=== PATIENT | female | born 1945 | race Caucasian/White ===

== ENCOUNTER 2019-06-30 12:21 | Inpatient (IN) ==
[2019-06-30 14:27] LABS: BASO# 0.04 X1000 (0.0-0.2); BASO% 0.5 % (0.0-0.8); EOS# 0.08 X1000 (0.0-0.7); HEMATOCRIT 58.6 % (37.0-47.0); HEMOGLOBIN 19.2 g/dL (12.0-16.0); LYMPH# 1.73 X1000 (1.2-3.4); LYMPH% 22.5 % (20.5-51.1); MCH 33.4 PG (27-31); MCHC 32.8 g/dL (33-37); MCV 101.9 FL (81-99); MONO% 9.1 % (1.7-9.3); MPV 11.7 FL (7.4-10.4); NEUT# 5.15 X1000 (1.4-6.5); NEUT% 66.9 % (42.2-75.2); PLT 150 X1000 (130-400); RBC 5.75 XMIL (4.2-5.4); RDW 13.5 % (11.5-14.5)
--- NOTE | 2019-06-30 14:28 | EKG Report ---
Test Performed on : 06/30/2019 2:01:41 PM Test Reason : a fib Blood Pressure : / mmHG Vent. Rate : 112 BPM Atrial Rate : 277 BPM P-R Int : 000 ms QRS Dur : 090 ms QT Int : 366 ms P-R-T Axes : 000 075 -19 degrees QTc Int : 499 ms Atrial fibrillation. with rapid ventricular response. Nonspecific ST abnormality Abnormal QRS-T angle, consider primary T wave abnormality Abnormal ECG When compared with ECG of 03-JUL-2018 10:39, Atrial fibrillation. has replaced Sinus rhythm. Vent. rate has increased BY [address] no longer elevated in Inferior leads T wave inversion more evident in Inferior leads Unconfirmed Result
--- NOTE | 2019-06-30 14:31 | Diag Imaging Result Doc PS360 ---
EXAM: CHEST-2 VIEWS INDICATION: a fib/ weakness TECHNIQUE: 2 views COMPARISON: 04/12/2019 FINDINGS: There is a nodular density at the right lower lobe near the base and the smaller nodule density at the left lung base. These appear stable. There is no discrete pleural fluid collection or pneumothorax. Cardiac silhouette is borderline prominent but stable. Central vasculature is unremarkable. IMPRESSION: Stable nodular densities at the lower lung zones bilaterally. No definite acute chest pathology by plain radiograph. Electronically signed by Cristóbal Bailey 06/30/2019 2:29 PM
[2019-06-30 14:37] LABS: INR 1.26
[2019-06-30 14:38] LABS: PTT 45.4 Seconds (22.3-41.8)
[2019-06-30 15:26] LABS: AGAP 13; ALB/GLOB RATIO 1.2; ALBUMIN 4.5 g/dL (3.5-5.0); ALKALINE PHOSPHATASE 76 U/L (32-104); BUN 12 mg/dL (8-22); CALCIUM 10.7 mg/dL (8.8-10.2); CHLORIDE 96 mmol/L (98-107); CK PROFILE 27 U/L (24-173); COSMO 279; CREATININE 0.6 mg/dL (0.5-0.9); ESTIMATED GFR > 60; GLUCOSE 121 mg/dL (70-104); GOT 14 U/L (10-30); GPT 16 U/L (10-36); POTASSIUM 4.6 mmol/L (3.5-5.1); SODIUM 139 mmol/L (136-145); TCO2 30 mmol/L (25-35); TOTAL BILIRUBIN 0.77 mg/dL (0.20-1.00); TOTAL PROTEIN 8.4 g/dL (6.3-8.3)
--- NOTE | 2019-06-30 16:10 | PROVIDER DOCUMENTATION ---
HPI-Cardiac General - General Chief Complaint: Weakness Stated Complaint: AFIB---DR REFERRAL Time Seen by Provider: 06/30/19 15:51 Source: patient Allergies/Adverse Reactions: Patient Allergies Allergy/AdvReac Type Severity Reaction Status Date / Time No Known Allergies Allergy Verified 06/30/19 15:30 Home Medications: Home Medication List Medication Instructions Recorded Confirmed Last Taken Type Bisoprolol Fumarate/Hctz 1 each PO DAILY 08/04/12 08/04/12 06/30/19 07:00 History [Bisoprolol-Hctz 5-6.25 mg Tab] Furosemide [Lasix] 40 mg PO DAILY 08/04/12 08/04/12 06/30/19 07:00 History Levothyroxine Sodium [Levoxyl] 25 mcg PO DAILY 08/04/12 08/04/12 06/30/19 07:00 History Meloxicam [Mobic] 7.5 mg PO BID 08/04/12 08/04/12 06/30/19 07:00 History Tiotropium [place] Inhaler 1 puff INH RTDAILY 08/04/12 08/04/12 06/30/19 07:00 History [Spiriva] - History of Present Illness-Cardiac Nature of Presenting Problem: 74 yof presents with c/o a-fib, HTN, and generalized weakness. She reports she was changed to a new medication per Dr. Gupta and began taking on on friday since that time she reports elevated BP from baseline. She also reports occasional flutters. Denies CP. She has seen PCP today and was sent to the ER for evaluation of A-fib with RVR. She currently is NAD. Reports she has discussed "shocking her heart back in to NSR" with family day carer if the medication change did not improve symptoms. Patient denies CP, SOB, n/v/d. Location: denies: substernal, central, epigastric, shoulder, back, abdomen, other Quality of Pain: reports: none Severity in ED: moderate Onset/Duration: 5 days ago Timing: still present Context/Activities at Onset: reports: none Modifying Factors: improves with: nothing Palpitation Quality: fast/pounding heart beat History of arrythmia: reports: A-Fib Recent use of:: reports: no stimulants Nitro Today/Relief: reports: no nitro taken today Aspirin Treatment Today: reports: no aspirin today Prior Chest Pain/Cardiac Workup: reports: no prior chest pain, no prior cardiac workup, non-cardiac Associated Symptoms: reports: denies symptoms Similar Symptoms Previously?: No Recently Seen Here or By Another Healthcare Provider: No Review of Systems - Adult - REVIEW OF SYSTEMS - ADULT Constitutional: reports: no symptoms reported. denies: see HPI, chills, fever, fatique, night sweats, weight gain, weight loss, other Eyes: reports: no symptoms reported. denies: see HPI, discharge, dry eyes, decreased vision, blurred vision, double vision, eye pain, redness, other Ears, Nose, Mouth & Throat: reports: no symptoms reported. denies: see HPI, ear discharge, ear pain, hearing loss, tinnitus, epistaxis, sinus problem, nose pain, loose teeth, mouth/dental pain, mouth swelling, hoarseness, throat pain, throat swelling, other Cardiovascular: reports: see HPI, irregular heart rate. denies: no symptoms reported, chest pain, edema, heart murmur, orthopnea, palpitations, poor circulation, PND, syncope, other Respiratory: reports: no symptoms reported. denies: see HPI, chronic cough, cough, dyspnea on exertion, excessive sputum production, hemoptysis, pleurisy, shortness of breath, wheezing, other Gastrointestinal: reports: no symptoms reported. denies: see HPI, abdominal pain, hematemesis, constipation, diarrhea, difficulty swallowing, frequent heartburn, nausea, poor appetite, rectal bleeding, vomiting, other Genitourinary: reports: no symptoms reported. denies: see HPI, dysuria, discharge, frequency, flank pain, frequent UTI's, hematuria, hesitency, incontinence, urinary retention, urgency, other Musculoskeletal: reports: no symptoms reported. denies: see HPI, bone pain, back pain, frequent leg cramps, joint pain, joint swelling, muscle aches, muscle weakness, neck pain, other Integumentary: reports: no symptoms reported. denies: see HPI, hives, hair loss, itching, mole changes, nail changes, rash, skin sores/ulcer, skin thickening, other Neurological: reports: no symptoms reported. denies: see HPI, ataxia, dizziness/vertigo, headache/migraines, loss of balance, numbness, paresthesia, seizure, slurred speech, syncope, tremors, other Psychiatric: reports: no symptoms reported. denies: see HPI, anxiety, anti- depressant use, alcohol/drug dependence, depression, emotional problems, insomnia, panic attacks, suicidal thoughts, other Endocrine: reports: no symptoms reported. denies: see HPI, change in skin pigment, excessive sweating, goiter, cold intolerance, heat intolerance, increased hunger, increased thirst, polyuria, other Hematologic/Lymphatic: reports: no symptoms reported. denies: see HPI, blood clots, easy bruising, low blood count, lymphedema, prolonged bleeding, swollen lymph nodes, transfusions, other Allergic/Immunologic: reports: no symptoms reported. denies: see HPI, allergic reactions, allergic rhinitis, asthma, eczema, food allergy, frequent infections, hay fever, hives, positive PPD, urticaria, other Past History - Adult - PAST MEDICAL HISTORY-ADULT Review of Records: reports: Nursing Assessment Review, Social history reviewed & non-contributory. - IMMUNIZATION STATUS Childhood Immunizations: See Nurse Assessment Flu Vaccine: See Nurse Assessment - FAMILY HISTORY Family History: reviewed, not pertinent - SOCIAL HISTORY Smoking: cigarettes, less than 1 pack/day Substance Use: denies Physical Exam-General - PHYSICAL EXAM-ADULT Initial Vital Signs Reviewed: Yes - CONSTITUTIONAL General Appearance: appears well, alert, no apparent distress - EYES Eyes: PERRL/EOMI, pink conjunctivae - HEAD, EARS, NOSE, MOUTH & THROAT HENMT: normocephalic/atraumatic, moist mucous membranes, normal ENT inspection - NECK Neck: non-tender, full range of motion, supple - RESPIRATORY Respiratory: chest non-tender, lungs clear, normal breath sounds, no pleuratic chest pain, no respiratory distress, no accessory muscle use - CARDIOVASCULAR Cardiovascular: normal peripheral pulses, tachycardia, irregularly irregular - GASTROINTESTINAL (ABDOMEN) Abdominal Exam: normal bowel sounds, non tender, soft - LYMPHATIC Lymphatic: no adenopathy - MUSCULOSKELETAL Back Exam: normal inspection, no CVA tenderness, no vertebral tenderness Extremity: normal range of motion, non-tender, normal gait, normal inspection, no pedal edema, no calf tenderness Peripheral Pulses: radial (R): 2+, radial (L): 2+, dorsalis-pedis (R): 2+, dorsalis-pedis (L): 2+ - SKIN Integumentary: normal color, normal turgor, warm/dry - NEUROLOGIC Neurologic: grossly normal - PSYCHIATRIC Psych/Mental Status: normal mood/affect, oriented x 3 Progress - PLAN OF CARE/RESULTS Progress/Plan/Lab Results: Vital Signs - 8 hr 06/30/19 12:31 06/30/19 13:55 Temperature 97.6 F 97.4 F L Pulse Rate 100 H 106 H Respiratory Rate 18 16 Blood Pressure 137/72 145/96 O2 Sat by Pulse Oximetry 92 L 91 L Laboratory Results - last 24 hr 06/30/19 06/30/19 06/30/19 14:15 14:15 14:15 WBC 7.70 RBC 5.75 H Hgb 19.2 H Hct 58.6 H MCV 101.9 H MCH 33.4 H MCHC 32.8 L RDW Std Deviation 13.5 Plt Count 150 MPV 11.7 H Immature Gran % (Auto) 0.0 Neut % (Auto) 66.9 Lymph % (Auto) 22.5 [place] % (Auto) 9.1 Eos % (Auto) 1.0 Baso % (Auto) 0.5 Immature Gran # (Auto) 0.00 Neut # (Auto) 5.15 Lymph # (Auto) 1.73 [place] # (Auto) 0.70 H Eos # (Auto) 0.08 Baso # (Auto) 0.04 PT INR PTT (Actin FS) Sodium 139 Potassium 4.6 Chloride 96 L Carbon Dioxide 30 Anion Gap 13 BUN 12 Creatinine 0.6 Estimated GFR/1.73 m2 > 60 BUN/Creatinine Ratio 20 Glucose 121 H Calculated Osmolality 279 Calcium 10.7 H Total Bilirubin 0.77 AST 14 ALT 16 Alkaline Phosphatase 76 Creatine Kinase 27 Troponin T [id number]-[id number] Pept 1366 H Total Protein 8.4 H Albumin 4.5 Globulin 3.9 Albumin/Globulin Ratio 1.2 06/30/19 06/30/19 14:15 14:15 WBC RBC Hgb Hct MCV MCH MCHC RDW Std Deviation Plt Count MPV Immature Gran % (Auto) Neut % (Auto) Lymph % (Auto) [place] % (Auto) Eos % (Auto) Baso % (Auto) Immature Gran # (Auto) Neut # (Auto) Lymph # (Auto) [place] # (Auto) Eos # (Auto) Baso # (Auto) PT 16.0 INR 1.26 PTT (Actin FS) 45.4 H Sodium Potassium Chloride Carbon Dioxide Anion Gap BUN Creatinine Estimated GFR/1.73 m2 BUN/Creatinine Ratio Glucose Calculated Osmolality Calcium Total Bilirubin AST ALT Alkaline Phosphatase Creatine Kinase Troponin T < 0.010 [id number] Pept Total Protein Albumin Globulin Albumin/Globulin Ratio Orders Category Date Time Status Cardiac Monitoring DIRECTED Care 06/30/19 13:59 Active Saline Loc NOW Care 06/30/19 13:59 Active CHEST-2 VIEWS [RAD] Stat Exams 06/30/19 13:59 Completed CBC WITH ELECTRONIC DIFF [HEME] Stat Lab 06/30/19 14:15 Completed CK PROFILE [SP CHEM] Stat Lab 06/30/19 14:15 Completed COMPREHENSIVE METABOLIC PANEL [CHEM] Stat Lab 06/30/19 14:15 Completed PRO B-NATRIURETIC PEPTIDE Stat Lab 06/30/19 14:15 Completed PROTIME WITH INR [COAG] Stat Lab 06/30/19 14:15 Completed PTT [COAG] Stat Lab 06/30/19 14:15 Completed TROPONIN T Stat Lab 06/30/19 14:15 Completed UA NIMS W/REFLEX CULT [URINALYSIS] Stat Lab 06/30/19 16:11 Uncollected 0.9% Sodium Chloride Inj [Ns] 1,000 ml Med 06/30/19 16:27 Active IV 75 mls/hr Diltiazem 100 mg/Ns [Cardizem 100 mg/Ns] Med 06/30/19 16:30 Active 100 mg in 100 ml IV As Directed mls/hr Diltiazem [Cardizem] Med 06/30/19 16:17 Discontinued 10 mg IV NOW ONE CP/SOB/Palp >45 yrs of Age Stat Oth 06/30/19 13:59 Ordered EKG [EKG] Stat Ther 06/30/19 13:[address] aLwson who recommends cardizen drip and bolus. He will notify cardiology. Plan to admit Result Diagrams: 06/30/19 14:15 06/30/19 14:15 - EKG 1 Time of EKG reading by physician:: 14:01 EKG Read and Signed by:: Jerry Lawson EKG Interpretation (*Must complete 3 of following elements*): Abnormal Rate: 112 Rhythm: a-fib rvr [place]: normal QRS: other (abnormal qrst angle, consider primary t wave abnormality) ST Wave: non-specific ST changes Prior EKG Comparison: changes noted - CONSULTS/PCP/HOSPITALIST Notification #1 *Consult/PCP/Hospitalist*: Dr. Remy Time Discussed: 16:45 Reason/Comments: Dr. Lawson Spoke with Dr. Remy who is in agreement with POC Consult Disposition: Admit #2 Consult: LEROY Reyes Time Discussed: 17:07 Reason/Comments: admit Dr. Armijo Consult Disposition: Admit Departure - Departure Date of Disposition Decision: 06/30/19 Time of Disposition Decision: 17:08 DIAGNOSIS: Atrial fibrillation with RVR Disposition: ADMITTED INPATIENT 09 Certified Medical Emergency: Emergent Condition: Stable Referrals and Follow-Ups: Anisha Rodríguez MD [Primary Care Provider] - - Critical Care Note This patient required my direct & personal management of CC.: No Attestation - Physician/ JEREMY Attestation Patient care was provided by Advanced Practice Provider:: Yes Advanced Practice Provider:: Nilsa Holland Advanced Practice Provider documentation review:: The Mid-level provider documentation, treatment plan and medical decision making was reviewed by the physician who agrees with all treatment and medical decision making by the MLP. The physician spent face to face time with patient:: No Advanced Practice Provider documentation review:: Supervising physician onsite and consulted in the evaluation and care of this patient. The physician did not have a face to face encounter with the patient.
[2019-06-30] MEDS ORDERED: CARDIZEM IV ONE (16:17)
[2019-06-30] MEDS ORDERED: NS 1,000 ML IV ONE (16:27)
[2019-06-30] MEDS ORDERED: LOVENOX 1 MG/KG SUBQ SCH (19:00)
[2019-06-30] MEDS: CARDIZEM 100 MG/NS 100 MG/100 ML IVPB IV SCH (19:20)
[2019-06-30 19:35] LABS: URINE SOURCE CLEAN CATCH
[2019-06-30 19:39] LABS: BILIRUBIN URINE NEGATIVE (NEGATIVE); BLOOD URINE NEGATIVE (NEGATIVE); COLOR YELLOW; GLUCOSE URINE NEGATIVE (NEGATIVE); KETONE URINE NEGATIVE (NEGATIVE); LEUKOCYTES URINE SMALL (NEGATIVE); NITRITE URINE POSITIVE (NEGATIVE); PH URINE 6.5; PROTEIN URINE TRACE mg/dL (NEGATIVE); SP GRAVITY URINE 1.019; TURBIDITY URINE HAZY (CLEAR); UROBILINOGEN URINE NORMAL (NORMAL)
[2019-06-30 19:40] LABS: UR EPITHELIAL CELLS <10 /HPF (<10); URINE BACTERIA 4+ /HPF; URINE RBC <10 /HPF (<10)
--- NOTE | 2019-06-30 19:50 | HISTORY AND PHYSICAL ---
PRIMARY CARE PHYSICIAN: Anisha Rodríguez MD CHIEF COMPLAINT: Palpitations and fluttering from her heart that began today. HISTORY OF PRESENTING ILLNESS: This is a 74-year-old female, who presents to [facility] with complaints of palpitations and occasional flutters in her heart. States that recently she was changed some medications by Dr. Aparicio and began taking those on Friday. Since that time, she states she has had an elevated blood pressure, felt occasional flutters and some palpitations. She is our primary care physician today, who felt that she needed to be evaluated in the emergency room. When she arrived, she was found to be in atrial fibrillation with RVR that got as high as 130. Discussed with Dr. Remy. The patient was given 10 mg of Cardizem IV x1 with little change, so she was placed on a Cardizem drip and will be admitted to the PVC unit for further evaluation and treatment. PAST MEDICAL HISTORY: Atrial fibrillation, hypertension, and hypothyroidism. PAST SURGICAL HISTORY: Bilateral tubal ligation, tonsillectomy, neck surgery, and left carpal tunnel release. FAMILY HISTORY: Reviewed and noncontributory. SOCIAL HISTORY: She currently lives with family. Smokes a pack of cigarettes a day and denies any alcohol or illicit drug use. ALLERGIES: She has no known drug allergies. HOME MEDICATIONS: A current list will need to be obtained, reconciled, reviewed, and restarted as appropriate. We will place an order for Nursing to update and confirm home medications. DIAGNOSTIC STUDIES: Laboratory data showed a white blood cell count of 7.70, hemoglobin 19.2, hematocrit 58.6, platelets 150,000. PT 16, INR 1.26. Sodium 139, potassium 4.6, chloride 96, CO2 of 30, BUN of 12, creatinine 0.6, glucose 121. Cardiac enzymes were negative. ProBNP of 1366. EKG showed atrial fibrillation with RVR at 112. Chest x-ray showed stable nodular densities at the lower lung zones bilaterally, but no acute definite chest pathology by plain radiograph. REVIEW OF SYSTEMS: She denied any fever, chills, blurred vision, dizziness. She denied chest pain, but was positive for palpitations and fluttering. Denied any cough or shortness of breath. Denied any abdominal pain, constipation, diarrhea, or burning or hurting with urination. PHYSICAL EXAMINATION: VITAL SIGNS: On arrival, she had a temperature of 97.6 degrees, pulse was 100. When she arrived, her EKG showed atrial fibrillation with RVR at 113. And it did get as high as 130. Respirations are 18, blood pressure 137/72, saturating 92% on room air. GENERAL: This is a 74-year-old female, who is lying in the bed and answers questions appropriately. HEMNT: Normocephalic, atraumatic. Normal ENT inspection. Oropharynx and nares are clear. EYES: Pupils are equal, round, and reactive to light and accommodation. Extraocular movements are intact. NECK: Normal inspection, normal range of motion. LUNGS: Clear to auscultation bilaterally with equal lung expansion and chest wall movement. HEART: Irregular rate and rhythm, but no murmurs, rubs, or gallops. ABDOMEN: Soft, nontender, nondistended. Bowel sounds are present x4 quadrants. MUSCULOSKELETAL: Has 5/5 strength x4 extremities. NEUROLOGICAL: The cranial nerves 2-12 appear grossly intact. ASSESSMENT: 1. Atrial fibrillation with rapid ventricular response. 2. Hypertension. 3. Active Tobacco abuse . 4. Polycythemia PLAN: She will be admitted to the PVC unit. Placed on telemetry. O2 per protocol. Healthy heart diet. SCDs for DVT prophylaxis. We will consult Cardiology. Placed on a Cardizem drip per protocol. Place on normal saline at 75 mL an hour. Update and confirm home medications. It is noted that she had an echocardiogram done on 05/25/2019 that showed an ejection fraction of 45% with a systolic function that was mild to moderately decreased. Further orders after seen by attending and by risk assessment consultant. Dictated by LEROY Null for Mushtaq Armijo MD cc: LEROY Null MD Bhavna Gowda, MD I agree with most components of history,physical, assessment and plan. A separate addendum has been dictated. MTDD
[2019-06-30] MEDS ORDERED: TYLENOL PO PRN (20:28)
[2019-06-30] MEDS ORDERED: ZOFRAN IV PRN (20:28)
--- NOTE | 2019-06-30 21:02 | HISTORY AND PHYSICAL ---
ADDENDUM: I agree with most components of the history, physical, assessment and plan. In brief, Ms. Duncan is a 74-year-old lady with a past medical history of chronic atrial fibrillation, essential hypertension, obstructive lung disease with diffusion defect, congestive heart failure with reduced ejection fraction of 45%, and history of bilateral calcified lung nodules, who came in with a chief complaint of weakness which has been progressive over the last 2 weeks. The patient has been having these symptoms since more than a month and was seeing Cardiology as an outpatient, and it was thought that her atrial fibrillation could have been contributing to it. Her metoprolol was changed to probably bisoprolol, which did not help, and she decided to come to the hospital. She denies known history of any cancer, lung disease, exertional shortness of breath. At home she is taking Pradaxa 150 mg b.i.d. She does have a family history of mother having lung cancer next. She was found to be in atrial fibrillation with rapid ventricular rate with a heart rate of 140, so the hospitalist team was consulted for further management. PHYSICAL EXAMINATION: VITAL SIGNS: Temperature of 97.4 degrees, pulse 106, respiratory rate 16, blood pressure 140/96, saturating 91% on room air. Physical Examination Oral cavity is moist. LUNGS: Air entry bilaterally equal in suprascapular region. Mildly decreased air entry in bilateral infrascapular regions with some inspiratory crackles. CARDIOVASCULAR: S1, S2 normal. Irregularly irregular, tachycardic. No murmur, rub, or gallop. ABDOMEN: Soft, nontender. No lower extremity edema except superficial venous congestion. She is alert and oriented x3. LABORATORY DATA: Remarkable for polycythemia, macrocytosis, normal kidney function, hypercalcemia, elevated proBNP. Microbiology unremarkable. Chest x-ray did not have a pneumothorax or pneumonia. She does have calcified nodules, bilateral lung rodriguez. Electrocardiogram suggestive of atrial fibrillation with rapid ventricular rate. ASSESSMENT AND PLAN: 1. Atrial fibrillation with rapid ventricular rate. I will start her on an intravenous diltiazem drip. I will keep her on enoxaparin for primary cerebrovascular accident prophylaxis. I will consult Cardiology for further recommendations. 2. Polycythemia. On previous lung function test, she was detected to have an obstructive pattern with diffusion defect. The etiology was unclear. She had a CT scan which had bilateral calcified lung nodules in 2018. I will get an erythropoietin level as well as JAK2 to rule out any polycythemia vera. She has a positive family history of mother having cancer. 3. Progressive weakness. This could be a combination of chronic atrial fibrillation versus other etiologies. I will keep her on intravenous fluids and follow up with CBC and BMP tomorrow. DISPOSITION: I will monitor patient in PVC unit. Plan of care discussed with her and her family at bedside. All their questions have been satisfactorily answered. cc: Mushtaq Armijo MD
[2019-06-30] MEDS: LOVENOX SUBQ SCH (21:17)
[2019-06-30 22:29] LABS: IRON SATURATION 20 %; TIBC 333 ug/dL; TOTAL IRON 66 ug/dL (49-151); UNBOUND IRON 267 ug/dL (112-346)
[2019-06-30 23:19] LABS: FERRITIN 1316 ng/mL (13-150)
[2019-07-01] MEDS: CARDIZEM 100 MG/NS 100 MG/100 ML IVPB IV SCH (05:37)
[2019-07-01 06:23] LABS: BASO# 0.03 X1000 (0.0-0.2); BASO% 0.5 % (0.0-0.8); EOS% 1.6 % (0.0-10.0); HEMATOCRIT 49.9 % (37.0-47.0); HEMOGLOBIN 16.3 g/dL (12.0-16.0); LYMPH# 1.73 X1000 (1.2-3.4); LYMPH% 27.9 % (20.5-51.1); MCH 33.9 PG (27-31); MCHC 32.7 g/dL (33-37); MCV 103.7 FL (81-99); MONO# 0.81 X1000 (0.11-0.59); MONO% 13.1 % (1.7-9.3); MPV 12.2 FL (7.4-10.4); NEUT# 3.52 X1000 (1.4-6.5); NEUT% 56.9 % (42.2-75.2); PLT 125 X1000 (130-400); RBC 4.81 XMIL (4.2-5.4); RDW 13.6 % (11.5-14.5); WBC 6.19 X1000 (4.8-10.8)
[2019-07-01 07:24] LABS: AGAP 9; BUN 15 mg/dL (8-22); CALCIUM 9.8 mg/dL (8.8-10.2); CHLORIDE 101 mmol/L (98-107); COSMO 286; CREATININE 0.7 mg/dL (0.5-0.9); ESTIMATED GFR > 60; GLUCOSE 127 mg/dL (70-104); POTASSIUM 3.7 mmol/L (3.5-5.1); SODIUM 142 mmol/L (136-145); TCO2 32 mmol/L (25-35)
[2019-07-01] MEDS: LOVENOX SUBQ SCH ×2 (07:27→20:56)
[2019-07-01] MEDS ORDERED: SYNTHROID PO SCH (09:00)
--- NOTE | 2019-07-01 09:01 | EKG Report ---
Test Performed on : 07/01/2019 08:51:06 AM Test Reason : Follow up heart rhythm Blood Pressure : / mmHG Vent. Rate : 099 BPM Atrial Rate : 277 BPM P-R Int : 000 ms QRS Dur : 096 ms QT Int : 370 ms P-R-T Axes : 000 062 -08 degrees QTc Int : 474 ms Atrial fibrillation. Nonspecific ST abnormality Abnormal QRS-T angle, consider primary T wave abnormality Abnormal ECG When compared with ECG of 30-JUN-2019 14:01, (Unconfirmed) Nonspecific T wave abnormality no longer evident in Anterior leads Confirmed by Meliton Cherry MD ([id number]) on 07/01/2019 5:33:10 PM
[2019-07-01] MEDS ORDERED: NS NEB INH SCH (09:45)
[2019-07-01] MEDS: MULTAQ PO SCH ×2 (10:12→20:55)
[2019-07-01] MEDS: LOPRESSOR PO SCH ×3 (10:12→20:56)
[2019-07-01] MEDS: CARDIZEM PO SCH ×3 (10:12→21:42)
--- NOTE | 2019-07-01 11:13 | CARDIOLOGY CONSULTATION ---
DATE: 07/01/2019 CONSULTATION REQUESTED BY: Hospitalist service. REASON FOR CONSULTATION: Dyspnea, atrial fibrillation. HISTORY: Mrs. Duncan is a 74-year-old female that I normally followed in my office. I had seen her recently about 10 days ago and she had been complaining of chest tightness and was found to be in persistent atrial fibrillation. We had made adjustments, put her on sotalol, discontinue metoprolol. However, she has noted that her blood pressure has been quite erratic. In addition, her breathing has become more later labored and she has been coughing and wheezing some. Yesterday she went to her primary doctor's office and from there she was referred to the emergency room. In the ER, she was found in atrial fibrillation with a heart rate in the order of 100 beats per minute. They put on IV Cardizem. They did a number of blood test. A proBNP level was checked it was 1366 mcg/mL. Troponin was negative. Of note, her ferritin is very high at 1316 ng/mL. BUN creatinine are normal. Her hemoglobin for some reason was high at 19.2 on the 1st blood test and subsequently 16.3. A chest x-ray was done and shows stable nodular densities at the lower lung zones. Her EKG of course showed atrial fibrillation with rapid rate. No ischemic changes. The patient this morning is really feeling about the same. She is obviously coughing and wheezing slightly. PAST MEDICAL HISTORY: Her past history positive for previous documented paroxysmal atrial fibrillation. She had been taking the Dabigatran 150 mg twice a day. She has coronary atherosclerosis noted on a prior CT scan of the chest. She has had a heart catheterization in 2009 that showed no evidence of obstructive coronary heart disease. She has hypertension. She has hyperlipidemia. She has diabetes mellitus type 2. Hypothyroidism. SURGICAL HISTORY: Has included tonsillectomy, carpal tunnel release, tubal ligation, and neck surgery. SOCIAL HISTORY: She been a smoker. She lives with her disabled son. ALLERGIES: The patient has no drug allergies. HOME MEDICINES: Include sotalol, Dabigatran, diltiazem CD 120 once daily, Lasix 40 daily, hydrochlorothiazide 12-1/2 daily, Levoxyl 25 mcg daily, meloxicam 7.5 once a day, metformin 500 twice a day, pravastatin 40 at bedtime, and Spiriva. REVIEW OF SYSTEMS: She has been feeling more short of breath lately, more cough, little physical activity. No edema. PHYSICAL EXAMINATION: Right now blood pressure is 157/96, temperature 98.2 degrees, pulse 85, respirations 23. The patient is awake, alert, in no distress.HEENT: Unremarkable. Chest: Rhonchi with prolonged expiratory phase. Heart: Sounds irregularly irregular. Abdomen: Nontender. Extremities: Showed no obvious edema. Neurological: Nonfocal. Moves 4 extremities. LABORATORY DATA: Additional blood work sodium, potassium, BUN, creatinine all normal. IMPRESSION: 1. Patient who has persistent atrial fibrillation, symptomatic. 2. Chronic obstructive pulmonary disease. 3. Tobacco user. 4. Hypertension. 5. Diabetes mellitus type 2. 6. Question of polycythemia. 7. Hypothyroidism. 8. Coronary atherosclerosis. 9. CHF diastolic, chronic with some acute component. RECOMMENDATION: At this time, we will proceed with direct current cardioversion. I am going to change her medications. She may not be able to tolerate sotalol at high doses because of her COPD, so I am going to go ahead and probably put her on diltiazem long-acting higher doses and which she was taking plus low-dose metoprolol and we will try to use Dronedarone or Multaq to try to maintain her in sinus rhythm. Cardioversion will be performed in the morning. She does not need a SONYA because she has already been taking Plavix for a long time. The patient really needs to quit smoking and we will follow her hospital course. The patient is being followed regularly by Dr. Noé Bowman from pulmonary because of the finding of pulmonary nodules. Thank you for asking us to participate in her evaluation. cc: Pavan Aparicio MD [facility]
[2019-07-01] MEDS: XOPENEX NEB INH SCH ×4 (11:37→22:55)
[2019-07-01] MEDS: SPIRIVA INH SCH (11:41)
--- NOTE | 2019-07-01 12:04 | PROGRESS NOTE ---
DATE: 07/01/2019 INTERVAL HISTORY: She was started on intravenous diltiazem drip, which controlled her heart rate in the morning time. She denies any complaints. She denies chest pain, shortness of breath, nausea, vomiting, abdominal pain. I discussed with her about improvement in her hemoglobin. Continue diltiazem drip and awaiting Cardiology recommendations. Her family is at bedside. CURRENT VITALS: Temperature 98.2 degrees, pulse 85, respiratory rate 23, blood pressure 157/96. She is saturating 95% on 2 L nasal cannula. PHYSICAL EXAM: General: She is not in any acute distress. Mouth: Oral cavity is moist. Lungs: She does have decreased lung sounds in bilateral lung rodriguez, especially in infrascapular region. No wheeze or rhonchi. Cardiovascular: S1, S2 normal. Irregularly irregular. No murmur, rub, or gallop. Abdomen: Soft, nontender. Skin: No facial plethora. Extremities: No lower extremity edema. Neurologic: She is alert and oriented x3. LABS: Suggestive of hemoglobin of 16.3 with macrocytosis of 103. Her platelet is 125,000. Her electrolytes are within acceptable range. Urine culture was drawn, though, she did not have any symptoms. ASSESSMENT AND PLAN: 1. Atrial fibrillation with rapid ventricular response. Continue intravenous diltiazem drip. On review of medication, she was also started on oral diltiazem recently it looks like. I will keep her on enoxaparin for primary cerebrovascular accident prophylaxis and we will await further cardiology recommendation to see if she would need any cardioversion which where the original plans outpatient. 2. Polycythemia. This could be related to chronic hypoxia related to diffusion defect as demonstrated on pulmonary function test in the past. She also had a saturation of 90% on arrival. It also improved after intravenous fluid resuscitation. So, hemoconcentration is also a possibility. She had calcified lung nodules in 2018 and JAK2 and erythropoietin levels are in lab to rule out any polycythemia vera. She has a family history of lung cancer in mother. 3. Rapidly Progressive weakness. This could be related to chronic atrial fibrillation versus polycythemia versus other etiologies. I will continue her inside the hospital. In future, we will have physical therapy evaluate her. DISPOSITION: Continue to monitor the patient in the PVC unit. Plan of care discussed with her and family. Their questions have been answered. cc: Mushtaq Armijo MD [facility]
[2019-07-01 15:42] LABS: LYMPHS 18 % (21-51); MONO 7 % (1-9); SEGS 75 % (42-75)
[2019-07-01] MEDS: PRAVACHOL PO SCH (20:56)
[2019-07-02] MEDS: XOPENEX NEB INH SCH ×6 (03:37→23:42)
[2019-07-02] MEDS: LOPRESSOR PO SCH ×3 (04:36→17:40)
[2019-07-02] MEDS: CARDIZEM PO SCH ×2 (04:36→11:49)
[2019-07-02] MEDS: MULTAQ PO SCH ×3 (06:22→20:40)
[2019-07-02] MEDS: LOVENOX SUBQ SCH ×3 (06:22→20:41)
[2019-07-02] MEDS: SYNTHROID PO SCH (06:22)
[2019-07-02 06:23] LABS: BASO# 0.03 X1000 (0.0-0.2); BASO% 0.5 % (0.0-0.8); EOS# 0.09 X1000 (0.0-0.7); EOS% 1.4 % (0.0-10.0); HEMATOCRIT 44.6 % (37.0-47.0); HEMOGLOBIN 14.9 g/dL (12.0-16.0); LYMPH# 1.61 X1000 (1.2-3.4); LYMPH% 25.3 % (20.5-51.1); MCH 34.6 PG (27-31); MCHC 33.4 g/dL (33-37); MCV 103.5 FL (81-99); MONO# 0.82 X1000 (0.11-0.59); MONO% 12.9 % (1.7-9.3); MPV 11.7 FL (7.4-10.4); NEUT# 3.81 X1000 (1.4-6.5); NEUT% 59.9 % (42.2-75.2); PLT 122 X1000 (130-400); RBC 4.31 XMIL (4.2-5.4); RDW 13.4 % (11.5-14.5); WBC 6.36 X1000 (4.8-10.8)
--- NOTE | 2019-07-02 06:41 | EKG Report ---
Test Performed on : 07/02/2019 06:32:33 AM Test Reason : a-fib Blood Pressure : / mmHG Vent. Rate : 071 BPM Atrial Rate : 375 BPM P-R Int : 000 ms QRS Dur : 096 ms QT Int : 426 ms P-R-T Axes : 260 082 061 degrees QTc Int : 462 ms Atrial flutter. with variable AV block. Abnormal ECG When compared with ECG of 01-JUL-2019 08:51, Atrial flutter. has replaced Atrial fibrillation. Confirmed by Jo Ann ROCHA, Meliton Zepeda ([id number]) on 07/02/2019 8:48:58 AM
[2019-07-02 07:09] LABS: AGAP 4; BUN 11 mg/dL (8-22); CALCIUM 9.7 mg/dL (8.8-10.2); CHLORIDE 102 mmol/L (98-107); COSMO 280; CREATININE 0.7 mg/dL (0.5-0.9); ESTIMATED GFR > 60; GLUCOSE 115 mg/dL (70-104); POTASSIUM 4.3 mmol/L (3.5-5.1); SODIUM 140 mmol/L (136-145); TCO2 34 mmol/L (25-35)
[2019-07-02] MEDS: SPIRIVA INH SCH (07:17)
[2019-07-02 07:37] LABS: BANDS 2 % (0-1); LYMPHS 20 % (21-51); MONO 4 % (1-9); SEGS 56 % (42-75)
[2019-07-02] MEDS ORDERED: NS 1,000 ML ONE (09:40)
[2019-07-02] MEDS ORDERED: ANESTHESIA PB SET 88 IN 5742 ONE (09:40)
--- NOTE | 2019-07-02 09:47 | PROGRESS NOTE ---
DATE: 07/02/2019 INTERVAL HISTORY: She was started on metoprolol, short-acting diltiazem, dronedarone. However, it did not help her rhythm. Though her heart rate was well controlled, she still remained in atrial fibrillation and the plan for her is to go for cardioversion. I discussed with her that there the erythropoietin and JAK2 blood tests are still in the lab. However, her hemoglobin has become normal. It is possible that her high hemoglobin could be related to COPD as well as volume depletion, which has now become normal. She denies any chest pain or shortness of breath. VITALS: Temperature of 97.9 degrees, pulse 65, respiratory 20, blood pressure 115/79. She is saturating 95% on 3 L nasal cannula. PHYSICAL EXAMINATION: General: Does not appear in any acute distress. HEENT: Oral cavity is moist. Respiratory: She has decreased air sounds bilaterally. No wheeze, rhonchi or crackles. Cardiac: S1, S2 normal. Irregularly irregular. No murmur or gallop. Abdomen: Soft, nontender. Extremity: No edema. Neuro: She is alert and oriented x3. I counseled her about smoking cessation. LABS: Hemoglobin of 14.9, which improved from 19.2 on presentation. She does have 122 of platelet. Her electrolytes are otherwise normal. MICROBIOLOGY: Urine culture is growing gram-negative evelin. However, she is denying any symptoms of it. IMAGING: No new imaging. ASSESSMENT AND PLAN: 1. Atrial fibrillation with rapid ventricular response. Continue current metoprolol, diltiazem and dronedarone and await cardioversion. Continue enoxaparin for primary cerebrovascular accident prophylaxis. She is at home taking Pradaxa. 2. Polycythemia. Could be secondary to her chronic hypoxia related to chronic obstructive pulmonary disease. Could be related to volume depletion as well. At home she was listed to be taking furosemide as well as hydrochlorothiazide. Now appears to be better. I discussed with her about following up with JAK2 and erythropoietin levels outpatient if they are not back by the time she gets discharged in future. 3. Active tobacco abuse with likely smoking-related obstructive lung disease based on pulmonary function test. She sees a baseball hand sewer as outpatient and I discussed with her about continuing albuterol inhaler and having outpatient pulmonology followup. 4. Rapidly progressive weakness, could be related to her atrial fibrillation. I will have physical therapy come by and evaluate her starting tomorrow. DISPOSITION: Plan of care was discussed with the patient and multiple family members. I will continue to monitor in PVC. Their questions have been answered. cc: Mushtaq Armijo MD
[2019-07-02] MEDS ORDERED: DIPRIVAN 1% ONE (09:54)
--- NOTE | 2019-07-02 11:53 | CARDIAC CATH REPORT ---
DATE: 07/02/2019 PROCEDURE: Direct current cardioversion. INDICATION: Patient with persistent atrial fibrillation, symptomatic, unable to be managed with medications. DESCRIPTION: The patient was consented on 07/01/2019. She was brought to the [facility] this morning, 07/02/2019, in a fasting state. The pads were positioned in an anterior posterior location and she received anesthesia under the services of the anesthesiologist on-call. IV propofol was used. Once the patient was adequately sedated, the patient received a single synchronized countershock to the chest cage consisting of 75 foster per second. She converted from atrial fibrillation into sinus rhythm. She woke up from the effects of anesthesia. SUMMARY: In summary, this was a successful cardioversion from atrial fibrillation into sinus rhythm. RECOMMENDATION: At this point in time, we are going to put her a different regimen of beta duncan, diltiazem, and dronedarone. We will follow her at the office. We will probably supply her with a 30 day loop recorder monitor to complement the current monitor that she was carrying. cc: Pavan Aparicio MD [facility]
--- NOTE | 2019-07-02 12:42 | EKG Report ---
Test Performed on : 07/02/2019 11:57:43 AM Test Reason : S/P Cardioversion Blood Pressure : / mmHG Vent. Rate : 070 BPM Atrial Rate : 070 BPM P-R Int : 190 ms QRS Dur : 098 ms QT Int : 424 ms P-R-T Axes : 060 054 021 degrees QTc Int : 457 ms Sinus rhythm. with premature atrial complexes. Possible Left atrial enlargement Nonspecific ST abnormality Abnormal ECG When compared with ECG of 02-JUL-2019 06:32, Sinus rhythm. has replaced Atrial flutter. Confirmed by Jo Ann ROCHA, Meliton Zepeda ([id number]) on 07/02/2019 3:08:22 PM
[2019-07-02] MEDS: PRAVACHOL PO SCH (20:40)
[2019-07-02] MEDS: CARDIZEM CD PO SCH (20:40)
[2019-07-03] MEDS: XOPENEX NEB INH SCH ×4 (03:14→15:28)
[2019-07-03] MEDS: SYNTHROID PO SCH ×2 (05:31→06:07)
[2019-07-03] MEDS: SPIRIVA INH SCH (07:33)
[2019-07-03] MEDS: MULTAQ PO SCH (08:21)
[2019-07-03] MEDS: CARDIZEM CD PO SCH (08:22)
[2019-07-03] MEDS ORDERED: TOPROL XL PO SCH (09:00)
[2019-07-03] MEDS ORDERED: PRADAXA PO SCH (09:00)
--- NOTE | 2019-07-03 11:10 | PROGRESS NOTE ---
DATE: 07/03/2019 INTERVAL HISTORY: His Perla underwent successful cardioversion from atrial fibrillation to sinus rhythm. She was kept on diltiazem, metoprolol and dronedarone which she has been tolerating well so far. SUBJECTIVE: Morning time she is feeling better. Denies chest pain, shortness of breath. I had a discussion about her elevated erythropoietin being secondary to probably her COPD. We discussed about asymptomatic bacteriuria, possibly current atrial fibrillation based on manager cardiac cath at bedside as well as outpatient pulmonology follow-up and home need of oxygen. VITAL SIGNS: Temperature 96.6 degrees, pulse 77, respiratory 18, blood pressure 139/95, saturating 94% on 3 L nasal cannula. PHYSICAL EXAMINATION: General: Not in acute distress. HEENT: Oral cavity is moist. Lungs: Air entry bilaterally equal in suprascapular region. Decreased air entry bilateral infrascapular region. Cardiovascular: S1, S2 normal. Irregularly irregular. No murmur, rub, or gallop. Abdomen: Soft, nontender. Extremities: No lower extremity edema. Neurologic: She is alert and oriented x3. LABORATORY DATA: No CBC or BMP today. ASSESSMENT AND PLAN: 1. Atrial fibrillation with rapid ventricular response status post direct current cardioversion on July 02. Continue home metoprolol, diltiazem and dronedarone. Followup stat EKG. On bedside monitor, it appears that she has converted back into atrial fibrillation. I will continue home Pradaxa and await further Cardiology recommendations. 2. Polycythemia with elevated erythropoietin. This could be secondary polycythemia due to her chronic obstructive pulmonary disease. I advised her to have a followup of JAK2 in any case outpatient. Her polycythemia has currently now resolved. 3. Hypoxic respiratory failure with suspected chronic obstructive pulmonary disease based on pulmonary function test. I will await home oxygen evaluation. Continue her home Spiriva and levalbuterol inhalation. She should have outpatient Pulmonology followup. She was counseled about smoking cessation because of her active tobacco abuse. 4. Rapidly progressive weakness, thought to be related to atrial fibrillation. Currently she is feeling better. 5. Disposition. Awaiting EKG, further Cardiology recommendations. Based on that, I will decide disposition to home. The patient really wanted to go home today, though. Plan of care discussed with her. She is in agreement. cc: Mushtaq Armijo MD
[2019-07-03 12:40] VITALS: BP 115/71
--- NOTE | 2019-07-03 13:40 | EKG Report ---
Test Performed on : 07/03/2019 10:33:02 AM Test Reason : Evaluate for heart rhythm Blood Pressure : / mmHG Vent. Rate : 084 BPM Atrial Rate : 192 BPM P-R Int : 000 ms QRS Dur : 098 ms QT Int : 382 ms P-R-T Axes : 000 062 035 degrees QTc Int : 451 ms Atrial fibrillation. Abnormal ECG When compared with ECG of 02-JUL-2019 11:57, Atrial fibrillation. has replaced Sinus rhythm. Confirmed by Jo Ann ROCHA, Meliton Zepeda ([id number]) on 07/04/2019 7:26:55 AM
--- NOTE | 2019-07-03 19:18 | DISCHARGE SUMMARY ---
ADMISSION DATE: 06/30/2019 DISCHARGE DATE: 07/03/2019 DISCHARGE DISPOSITION: Home with oxygen DISCHARGE CONDITION: Hemodynamically stable. She is back in atrial fibrillation; however, her heart rate is well controlled. She is feeling stronger. I provided her with 2 options, with one being staying inside the hospital over the weekend and having her primary machine steak tenderizer evaluate her on Friday, and the second being letting her go home if she was feeling fine on current antiarrhythmic medication regimen, and see her primary machine steak tenderizer in his office. She decided to go home with oxygen and see her primary machine steak tenderizer in the office. DISCHARGE DIAGNOSES: 1. Atrial fibrillation with rapid ventricular response. 2. 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 3. Hypoxic respiratory failure with suspected chronic obstructive pulmonary disease. 4. Rapidly progressive weakness, thought to be related to atrial fibrillation. OTHER DIAGNOSES: 1. Essential hypertension. 2. Hypothyroidism. DISCHARGE MEDICATIONS: Pravastatin 40 mg at nighttime, furosemide 40 mg daily, levothyroxine 25 mcg daily, meloxicam 7.5 mg b.i.d., metformin 500 mg b.i.d., Pradaxa 150 mg b.i.d., tiotropium 1 puff inhaled daily, Cardizem CD 120 mg b.i.d., dronedarone 400 mg b.i.d., metoprolol succinate extended release 25 mg daily. VITALS AT TIME OF DISCHARGE: Temperature 97.6, pulse 86, respiratory rate 17, blood pressure 115/71, saturating 92% on 3 L nasal cannula. She was saturating 85% on room air. PHYSICAL EXAMINATION AT TIME OF DISCHARGE.: General: In the morning time, she was awake, alert, not in acute distress. She was in atrial fibrillation but did not have any chest pain or shortness of breath. She was alert and oriented x3. Her air entry was bilaterally equal without wheeze, rhonchi, or crackles. Cardiovascular: S1, S2 normal. No murmur or gallop. Abdomen: Soft, nontender. SIGNIFICANT LABS DURING HOSPITAL ADMISSION: On presentation her hemoglobin was 19.2, which improved to 14.9 at the time of discharge after intravenous fluids. Her platelet count is 122 at the time of discharge. Electrolytes were within normal range with BUN 11, creatinine 0.7. Her TSH was 1.6. Her urine culture was growing E coli, and her urinalysis had 10 to 20 WBCs, but the patient did not have burning during micturition, increased frequency, abdominal pain, fever, or leukocytosis, so it was treated as asymptomatic bacteriuria, and no antibiotics were given. SIGNIFICANT IMAGING: Chest x-ray on admission had stable nodular densities at the lower lung zones bilaterally without any acute pathology. Cardiovascular: EKG on admission had atrial fibrillation with rapid ventricular response of 112 per minute, nonspecific ST abnormality. PROCEDURES DURING HOSPITAL ADMISSION: On 07/02/2019, the patient underwent synchronized cardioversion of 75 foster, and she converted from atrial fibrillation into sinus rhythm. HOSPITAL COURSE SUMMARY: Ms. Duncan is a 74-year-old lady with a past medical history of atrial fibrillation, essential hypertension, obstructive lung disease with diffusion defect, likely smoking-related COPD, congestive heart failure with ejection fraction of 45% and bilateral calcified lung nodules, which were being followed about outpatient pulmonology. She went to see her regular physician with chief complaints of progressive weakness, and in her primary care provider's office she was found to be in atrial fibrillation with rapid ventricular response, so she was sent to the emergency room for further evaluation. Apparently, the patient has been dealing with progressive weakness over the last several months, and some medication adjustments were made by her machine steak tenderizer. In the emergency room she was found to have atrial fibrillation with rapid ventricular rate with heart rate of 140, and she was admitted with intravenous diltiazem drip for further management. Cardiology team evaluated the patient, and the patient was continued on her anticoagulation. At home she was taking Pradaxa. She underwent cardioversion on July 02 with successful cardioversion to normal sinus rhythm. Then, she was started on an oral regimen of diltiazem and metoprolol extended release as well as dronedarone; however, after cardioversion, overnight the patient went into atrial fibrillation again, though her heart rate was well controlled and she was asymptomatic. In the morning time. EKG did reveal atrial fibrillation with controlled ventricular response, but the patient was feeling stronger, and she did not have any symptoms. At this point the patient's primary machine steak tenderizer was not available, so an on-call machine steak tenderizer was talked to on the phone, and accordingly patient was provided 2 options. One was to be in the hospital over the weekend and have her primary machine steak tenderizer evaluate her 48 hours later, or if she was asymptomatic, let her go home. The patient had decided to go home and have a followup with her outpatient machine steak tenderizer as an outpatient. Regarding her elevated hemoglobin, erythropoietin and JAK2 levels were sent. Erythropoietin levels came back elevated. It was thought her polycythemia with hemoglobin of 19 on presentation was likely secondary to her COPD and chronic hypoxia, and she will be discharged on home oxygen. Her JAK2 mutation was pending and she was advised to follow up with that when she sees a regular doctor or facing machine operator. Plan of care discussed with the patient and her son at bedside. More than 30 minutes spent discharging the patient. All of their questions have been answered. cc: Mushtaq Armijo MD [facility]TD[facility]
== END 2019-07-03 17:50 | disposition home or self-care (01) | DRG 309 ==
LOC: ED 12:21 → 2N 17:43
PROVIDERS: ATTEND Internal Medicine

== ENCOUNTER 2019-08-01 15:17 | Inpatient (IN) ==
[2019-08-01] MEDS ORDERED: NS 1,000 ML IV ONE (15:35)
[2019-08-01] MEDS ORDERED: NEO-SYNEPHRINE 1% NASAL SPRAY NAS ONE (15:35)
[2019-08-01 16:11] LABS: BASO# 0.03 X1000 (0.0-0.2); BASO% 0.4 % (0.0-0.8); EOS# 0.14 X1000 (0.0-0.7); EOS% 1.7 % (0.0-10.0); HEMOGLOBIN 14.2 g/dL (12.0-16.0); IMM GRAN# 0.02 X1000 (0.0-0.04); IMM GRAN% 0.2 % (0.0-0.5); LYMPH# 1.38 X1000 (1.2-3.4); LYMPH% 17.1 % (20.5-51.1); MCH 33.4 PG (27-31); MCHC 32.3 g/dL (33-37); MCV 103.5 FL (81-99); MONO# 0.92 X1000 (0.11-0.59); MONO% 11.4 % (1.7-9.3); MPV 11.8 FL (7.4-10.4); NEUT% 69.2 % (42.2-75.2); PLT 180 X1000 (130-400); RBC 4.25 XMIL (4.2-5.4); RDW 12.6 % (11.5-14.5); WBC 8.09 X1000 (4.8-10.8)
--- NOTE | 2019-08-01 16:25 | PROVIDER DOCUMENTATION ---
HPI-EENT General - General Chief Complaint: Nose Bleed Stated Complaint: NOSE BLEED Time Seen by Provider: 08/01/19 15:30 Source: patient, family (Daughter) Allergies/Adverse Reactions: Patient Allergies Allergy/AdvReac Type Severity Reaction Status Date / Time No Known Allergies Allergy Verified 08/01/19 16:22 Home Medications: Home Medication List Medication Instructions Recorded Confirmed Last Taken Type Levothyroxine Sodium [Levoxyl] 25 mcg PO DAILY 08/04/12 08/01/19 08/01/19 History Tiotropium [place] Inhaler 1 puff INH RTDAILY 08/04/12 08/01/19 08/01/19 History [Spiriva] Dabigatran Etexilate Mesylate 150 mg PO BID 06/30/19 08/01/19 08/01/19 History [Pradaxa] Furosemide 40 mg PO DAILY 06/30/19 08/01/19 08/01/19 History Meloxicam 7.5 mg PO BID 06/30/19 08/01/19 08/01/19 History Metformin HCl 500 mg PO BID 06/30/19 08/01/19 08/01/19 History PRAVAstatin [Pravachol] 40 mg PO QHS 06/30/19 08/01/19 07/31/19 History Diltiazem C.d. [Cardizem Cd] 120 mg PO BID #60 cap 07/03/19 08/01/19 08/01/19 Rx Dronedarone [Multaq] 400 mg PO BID #60 tab 07/03/19 08/01/19 08/01/19 Rx Metoprolol Succinate E.r. 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 Daughter reports patient takes a blood thinner and has been experiencing minor nosebleeds, but were unable to stop this bleed with pressure. States patient has COPD and is on 3L NC at home, which has contributed to her nose drying out in addition to taking a blood thinner for A-fib. Daughter reports patient has bled through numerous rags and used numerous bowls to spit blood into. Patient's triage BP 84/54 and O2 saturation 82% on RA. R nostril actively bleeding upon examination. EENT Location: reports: nose Quality of Pain: reports: none Severity: reports: severe Onset/Duration: reports: 1-3 hours ago Timing: reports: still present Prearrival Treatment: Initiated squeezing nostrils Associated Symptoms: reports: denies symptoms. 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 denies: chills, fever Eyes: reports: no symptoms reported Ears, Nose, Mouth & Throat: reports: see HPI, epistaxis Cardiovascular: reports: no symptoms reported. denies: chest pain, palpitations Respiratory: reports: see HPI, shortness of breath Gastrointestinal: reports: no symptoms reported Genitourinary: reports: no symptoms reported Musculoskeletal: reports: no symptoms reported Integumentary: reports: no symptoms reported Neurological: reports: no symptoms reported Psychiatric: reports: no symptoms reported Endocrine: reports: no symptoms reported Past History - Adult - PAST MEDICAL HISTORY-ADULT Review of Records: reports: Nursing Assessment Review, Medications Reviewed Cardiovascular: reports: A-Fib Respiratory: reports: COPD - IMMUNIZATION STATUS Childhood Immunizations: See Nurse Assessment Flu Vaccine: See Nurse Assessment - FAMILY HISTORY Family History: reviewed, not pertinent Physical Exam- EENT - Physical Exam EENT Initial Vital Signs Reviewed: Yes General Appearance: alert, moderate distress. negative: lethargic, slow to respond, obtunded Eye Exam: bilateral eye: normal inspection, PERRL, EOMI Nasal Exam: active bleeding (L nostril oozing blood; R nostril continuously bleeding) Throat Exam: normal mouth inspection, other (postnasal bleeding) Neck: full range of motion, supple, normal inspection Respiratory: lungs clear, normal breath sounds, no pleuratic chest pain, other (O2 saturation 82% on RA). negative: crackles, rales, rhonchi Cardiovascular: no gallop, irregularly irregular (a-fib hx) Back Exam: normal inspection Extremity: normal range of motion Integumentary: normal color, warm/dry. negative: cyanosis, jaundice, pallor Neurologic: grossly normal. negative: abnormal gait, aphasia, EOM palsy Psych/Mental Status: normal mood/affect, normal thought content, normal thought process, oriented x 3 Progress - PLAN OF CARE/RESULTS Progress/Plan/Lab Results: Vital Signs - 8 hr 08/01/19 15:24 08/01/19 15:45 08/01/19 15:56 Temperature 98.0 F Pulse Rate 90 100 H 102 H Respiratory Rate 18 20 38 H Blood Pressure 84/54 101/68 O2 Sat by Pulse Oximetry 82 L 83 L 97 08/01/19 16:00 08/01/19 16:15 08/01/19 16:30 Temperature Pulse Rate 87 105 H 91 H Respiratory Rate 24 24 24 Blood Pressure O2 Sat by Pulse Oximetry 97 97 97 08/01/19 16:45 08/01/19 17:00 08/01/19 17:15 Temperature Pulse Rate 82 101 H 87 Respiratory Rate 23 24 33 H Blood Pressure 101/68 O2 Sat by Pulse Oximetry 95 95 94 L 08/01/19 17:30 08/01/19 17:38 08/01/19 17:45 Temperature Pulse Rate 97 H 92 H 85 Respiratory Rate 34 H 31 H 26 H Blood Pressure 123/77 O2 Sat by Pulse Oximetry 95 95 91 L 08/01/19 18:00 08/01/19 18:15 Temperature Pulse Rate 84 97 H Respiratory Rate 29 H 22 Blood Pressure 141/75 O2 Sat by Pulse Oximetry 94 L 94 L Laboratory Results - last 24 hr 08/01/19 08/01/19 08/01/19 15:49 15:49 15:49 WBC 8.09 RBC 4.25 Hgb 14.2 Hct 44.0 MCV 103.5 H MCH 33.4 H MCHC 32.3 L RDW Std Deviation 12.6 Plt Count 180 MPV 11.8 H Immature Gran % (Auto) 0.2 Neut % (Auto) 69.2 Lymph % (Auto) 17.1 L [place] % (Auto) 11.4 H Eos % (Auto) 1.7 Baso % (Auto) 0.4 Immature Gran # (Auto) 0.02 Neut # (Auto) 5.60 Lymph # (Auto) 1.38 [place] # (Auto) 0.92 H Eos # (Auto) 0.14 Baso # (Auto) 0.03 PT 21.2 H INR 1.79 PTT (Actin FS) 64.3 H Sodium 158 H Potassium 4.4 Chloride 105 Carbon Dioxide 37 H Anion Gap 16 BUN 18 Creatinine 0.8 Estimated GFR/1.73 m2 > 60 BUN/Creatinine Ratio 23 Glucose 120 H Calculated Osmolality 316 Calcium 11.3 H Total Bilirubin 0.38 AST 15 ALT 12 Alkaline Phosphatase 76 Total Protein 7.1 Albumin 4.3 Globulin 2.8 Albumin/Globulin Ratio 1.5 Blood Type Antibody Screen 08/01/19 15:49 WBC RBC Hgb Hct MCV MCH MCHC RDW Std Deviation Plt Count MPV Immature Gran % (Auto) Neut % (Auto) Lymph % (Auto) [place] % (Auto) Eos % (Auto) Baso % (Auto) Immature Gran # (Auto) Neut # (Auto) Lymph # (Auto) [place] # (Auto) Eos # (Auto) Baso # (Auto) PT INR PTT (Actin FS) Sodium Potassium Chloride Carbon Dioxide Anion Gap BUN Creatinine Estimated GFR/1.73 m2 BUN/Creatinine Ratio Glucose Calculated Osmolality Calcium Total Bilirubin AST ALT Alkaline Phosphatase Total Protein Albumin Globulin Albumin/Globulin Ratio Blood Type O POSITIVE Antibody Screen NEGATIVE Orders Category Date Time Status Oxygen Therapy- ED Nursing DIRECTED Care 08/01/19 15:36 Active Repeat Vital Signs .Blood Pressure Care 08/01/19 17:27 Active Saline Loc NOW Care 08/01/19 15:34 Active CBC WITH ELECTRONIC DIFF [HEME] Stat Lab 08/01/19 15:49 Completed COMPREHENSIVE METABOLIC PANEL [CHEM] Stat Lab 08/01/19 15:49 Completed PROTIME WITH INR [COAG] Stat Lab 08/01/19 15:49 Completed PTT [COAG] Stat Lab 08/01/19 15:49 Completed TYPE & SCREEN [BBK] Stat Lab 08/01/19 15:49 Completed 0.9% Sodium Chloride Inj [Ns] 1,000 ml Med 08/01/19 15:35 Discontinued IV 999 mls/hr Phenylephrine 1% Nasal Cyrus [Jenaro-Synephrine 1% Nasal Med 08/01/19 15:35 Discontinued Cyrus] See Dose Instructions COOPER NOW ONE Transfer/Admit Order [TRANSFER] Routine Transfer 08/01/19 19:03 Ordered Rhinorocket soaked in Jenaro-Synephrine inserted in R nostril @ 1556. BP improved to 101/68 and patient was placed on 80% FiO2 via Face Tent. 1800: Dr. Harry at bedside. Recommends inpatient admission via Hospitalist. He discussed with patient regarding admission and patient accepts. Result Diagrams: 08/01/19 15:49 08/01/19 15:49 - REASSESSMENT Reassessment #1 Time Reassessed: 15:56 Status: improving Reassessment Comment: Rhinorocket inserted; BP up 101/68 & O2 94% on 80% face tent Reassessment #2 Time Reassessed: 17:45 Status: unchanged Reassessment #3 Time Reassessed: 18:00 Status: unchanged Reassessment Comment: Dr. Harry at bedside. Recommends admission for management - CONSULTS/PCP/HOSPITALIST Notification #1 *Consult/PCP/Hospitalist*: ROGELIO Harry Time Discussed: 17:42 Reason/Comments: Epistaxis; unable to resolve Consult Disposition: Will see in ED #2 Consult: Stu Neely Time Discussed: 18:18 Reason/Comments: Epistaxis; hypotension; hypoxemia Consult Disposition: Admit Procedures - ENT PROCEDURES Epistaxis Management: Right Nasal Drops Instilled: Jenaro-Synephrine Nasal Rocket Insertion: Right Procedure Comment: Inserted @ 1556 Departure - Departure Date of Disposition Decision: 08/01/19 Time of Disposition Decision: 18:20 DIAGNOSIS: Posterior epistaxis, Hypoxemia, Blood thinned due to long-term anticoagulant use, Elevated partial thromboplastin time (PTT) Hypotension Qualifiers: Hypotension type: hypotension due to hypovolemia Qualified Code(s): I95.89 - Other hypotension Disposition: ADMITTED INPATIENT 09 Certified Medical Emergency: Emergent Condition: Stable Referrals and Follow-Ups: Anisha Rodríguez MD [Primary Care Provider] - - Critical Care Note This patient required my direct & personal management of CC.: No Attestation - Physician/ JEREMY Attestation Patient care was provided by Advanced Practice Provider:: Yes Advanced Practice Provider:: Sonal Briggs Advanced Practice Provider documentation review:: The Mid-level provider documentation, treatment plan and medical decision making was reviewed by the physician who agrees with all treatment and medical decision making by the MLP. The physician spent face to face time with patient:: Yes (Renny) Advanced Practice Provider documentation review:: Supervising physician onsite and consulted in the evaluation and care of this patient. The physician did have a face to face encounter with the patient.
[2019-08-01 16:28] LABS: INR 1.79; PROTIME 21.2 Seconds (11.0-16.0)
[2019-08-01 16:29] LABS: PTT 64.3 Seconds (22.3-41.8)
[2019-08-01 17:24] LABS: ESTIMATED GFR > 60
[2019-08-01 17:37] LABS: AGAP 16; ALB/GLOB RATIO 1.5; ALBUMIN 4.3 g/dL (3.5-5.0); ALKALINE PHOSPHATASE 76 U/L (32-104); BUN 18 mg/dL (8-22); CALCIUM 11.3 mg/dL (8.8-10.2); CHLORIDE 105 mmol/L (98-107); COSMO 316; CREATININE 0.8 mg/dL (0.5-0.9); GLUCOSE 120 mg/dL (70-104); GOT 15 U/L (10-30); GPT 12 U/L (10-36); POTASSIUM 4.4 mmol/L (3.5-5.1); SODIUM 158 mmol/L (136-145); TCO2 37 mmol/L (25-35); TOTAL BILIRUBIN 0.38 mg/dL (0.20-1.00); TOTAL PROTEIN 7.1 g/dL (6.3-8.3)
--- NOTE | 2019-08-01 21:07 | CONSULTATION ---
DATE OF CONSULTATION: 08/01/2019 REASON FOR CONSULTATION: See this patient regarding right epistaxis. The patient began having some minor bleeding yesterday which resolved spontaneously, then 2 this morning began having epistaxis which again stopped. However, this afternoon about 2 she had onset of epistaxis that persisted quite severe, came to the emergency room, had a anterior Rhino Rocket nasal pack placed. She has had persistent bleeding initially posteriorly. No hemoptysis. No hematemesis. She became hypotensive and 80 systolic, responded to fluids, is alert, oriented. Feels much better. No active bleeding at this point. She is on Pradaxa. No history of trauma. No history of epistaxis prior to yesterday. PAST MEDICAL HISTORY: Reviewed. Social, family and review of systems noted. PHYSICAL EXAM: Constitutional: Well-developed, well-nourished, pleasant female in no acute distress. HEENT: 7 cm Rhino Rocket anterior balloon in position on the right, nasal rim intact. No bleeding anteriorly around Rhino Rocket. Oral cavity, pharynx clear. No posterior pharyngeal blood noted at this time. IMPRESSION: Right anterior posterior epistaxis, currently controlled with 7 cm Rhino Rocket. The patient is on anticoagulation with Pradaxa for atrial fibrillation. RECOMMENDATIONS: Epistaxis currently controlled though have discussed with the patient and family that we can see some mild recurrence both anterior and posteriorly due to her anticoagulation. Due to comorbid conditions I have recommended she be admitted to the hospital. I have recommended holding Pradaxa if possible. Will hold on replacing pack at this time but will follow with you. cc: Nathanael Harry MD
[2019-08-01] MEDS ORDERED: ZOFRAN IV PRN (21:38)
[2019-08-01] MEDS ORDERED: TYLENOL PO PRN (21:38)
[2019-08-01] MEDS: GLUCOPHAGE PO SCH (22:16)
[2019-08-01] MEDS: SINGULAIR PO SCH (22:16)
[2019-08-01] MEDS: PRAVACHOL PO SCH (22:16)
[2019-08-01] MEDS: MULTAQ PO SCH (22:16)
[2019-08-01] MEDS: CARDIZEM CD PO SCH (22:16)
[2019-08-01] MEDS: HUMULIN R SUBQ SCH (22:18)
--- NOTE | 2019-08-02 00:52 | HISTORY AND PHYSICAL ---
CHIEF COMPLAINT: Bloody nose. HISTORY OF PRESENT ILLNESS: This is a 74-year-old female. She is on Pradaxa because of atrial fibrillation. She came into the ER because of profuse bleeding from her nose. She was here not too long ago for atrial fibrillation with RVR and she may have underwent DC cardioversion. In any case, the patient went home on oxygen and she started having some bleeding I believe last night and then this morning had profuse amount of bleeding, spitting up blood and it could not be controlled so she came in for evaluation. She had a Rhino Rocket packed with Jenaro-Synephrine and so far bleeding has been basically under control. So, in any case she was seen by Dr. Harry and he is recommending monitoring her at least a day or so off her Pradaxa which she takes for atrial fibrillation. She also has polycythemia and I do think she has COPD although she did not admit to that diagnosis but she still smokes. PAST MEDICAL HISTORY: 1. Atrial fibrillation. 2. Hypertension. 3. Hypothyroidism. 4. Most likely COPD. It is not clear that she has CHF, though. PAST SURGICAL HISTORY: 1. Bilateral tubal ligation. 2. Tonsillectomy. 3. Neck surgery. 4. Left carpal tunnel release. FAMILY HISTORY: Positive for father with CVA. Mother with CVA and lung cancer history. SOCIAL HISTORY: She smokes. She has at least a 20 pack year history of smoking. I do not know if that is when she smoking so may be a more a 50 pack year. She is down to 6 to 7 cigarettes a day in any case. ALLERGIES: No known drug allergies. MEDICATIONS: She is on Singulair 10 daily, Pravachol 40 daily, Lasix 40 daily, Synthroid 25 daily, meloxicam 7.5 b.i.d., metformin 1 g b.i.d., Pradaxa 150 b.i.d., Spiriva daily, Cardizem CD 120 b.i.d. which is new, Multaq 400 b.i.d., Toprol-XL 25 daily. REVIEW OF SYSTEMS: Otherwise negative 10 point review of system. PHYSICAL EXAMINATION: VITAL SIGNS: Blood pressure 141/75, heart rate of 97, respiratory rate of 22, temperature was 98 degrees. GENERAL: A well-developed female appears pale. She has got a Rhino Rocket in place with no active bleeding. HEENT: Pupils equal, round, reactive to light. Extraocular movements were intact. Ear, nose and throat exam: She had moist mucous membranes. NECK: Exam was supple . CARDIOVASCULAR: Regular rate and rhythm. No murmurs, gallops, or rubs. PULMONARY: Bilateral breath sounds clear to auscultation. GASTROINTESTINAL: Soft, nontender, nondistended. Bowel sounds were positive. NEUROLOGIC: Unremarkable, nonfocal. MUSCULOSKELETAL: 4 to 5 in all 4 extremities. She did have a holosystolic murmur as well. LABORATORY DATA: White count is 8, hemoglobin and hematocrit 14 and 44, platelets of 180,000, MCV of 103. INR of 1.79. Sodium though is 158 with a calcium of 11.3. The JAK2 was negative. I do not think she had any imaging. ASSESSMENT: This is a 74-year-old female with history of diabetes, atrial fibrillation, recently placed on oxygen, who comes in with recurrent epistaxis which is concerning for possible related to her iatrogenic coagulopathy from anticoagulation. 1. Epistaxis. We will continue to monitor. I have discussed the case with Dr. Harry. We will continue conservative measures for the time being. If bleeding is not controlled, she may require a trip to the OR for cauterization but we will continue to monitor. Hold her anticoagulation, any anti-platelet medications and follow. 2. Relative hypoxia. She had recently qualified for oxygen. I do think she probably has some underlying COPD. The family relates her hypoxia to her atrial fibrillation, but she had been cardioverted, but in any case patient seems to be doing okay. We are weaning her O2. We will continue to follow. 3. Diabetes. Continue to monitor her blood sugars. She is on metformin alone. Her A1c apparently usually runs in the 5 kind of range. 4. Anemia. We will keep an eye on her anemia numbers since she has having those other issues and she does have some macrocytosis so we will look at that. Requesting a cardiology consult so we will see what we can do to pursue that although I think she has been doing okay although I do think we should probably get a chest x-ray and an EKG. We will see how she does clinically. cc: MD Anisha Leroy MD
[2019-08-02] MEDS: HUMULIN R SUBQ SCH ×4 (06:03→21:40)
[2019-08-02] MEDS: SYNTHROID PO SCH (06:06)
[2019-08-02 06:28] LABS: HEMOGLOBIN A1C 6.2 % (4.8-6.0)
[2019-08-02 06:29] LABS: BASO# 0.02 X1000 (0.0-0.2); BASO% 0.3 % (0.0-0.8); EOS# 0.19 X1000 (0.0-0.7); EOS% 2.6 % (0.0-10.0); HEMATOCRIT 37.6 % (37.0-47.0); HEMOGLOBIN 11.9 g/dL (12.0-16.0); IMM GRAN# 0.02 X1000 (0.0-0.04); IMM GRAN% 0.3 % (0.0-0.5); LYMPH% 20.3 % (20.5-51.1); MCHC 31.6 g/dL (33-37); MCV 104.2 FL (81-99); MONO% 9.5 % (1.7-9.3); MPV 11.8 FL (7.4-10.4); NEUT# 4.97 X1000 (1.4-6.5); PLT 154 X1000 (130-400); RBC 3.61 XMIL (4.2-5.4); RDW 12.5 % (11.5-14.5)
--- NOTE | 2019-08-02 07:16 | Diag Imaging Result Doc PS360 ---
EXAM: CHEST-PORTABLE 08/02/2019 HISTORY: dyspnea TECHNIQUE: AP portable at 0559 COMMENT: There is blunting of the right costophrenic angle which was not the case on 06/30/2019. The lungs are less well-expanded and there is generalized interstitial opacity. The heart size remains enlarged. IMPRESSION: Mild pulmonary edema. Atelectasis versus pneumonia right lower lobe. Electronically signed by Fawad Patel 08/02/2019 7:13 AM
[2019-08-02 07:21] LABS: AGAP 6; ALB/GLOB RATIO 1.2; ALBUMIN 3.2 g/dL (3.5-5.0); ALKALINE PHOSPHATASE 56 U/L (32-104); BUN 16 mg/dL (8-22); CHLORIDE 103 mmol/L (98-107); COSMO 288; CREATININE 0.5 mg/dL (0.5-0.9); ESTIMATED GFR > 60; GLUCOSE 98 mg/dL (70-104); GOT 11 U/L (10-30); GPT 10 U/L (10-36); POTASSIUM 3.8 mmol/L (3.5-5.1); SODIUM 144 mmol/L (136-145); TCO2 35 mmol/L (25-35); TOTAL BILIRUBIN 0.33 mg/dL (0.20-1.00); TOTAL PROTEIN 5.9 g/dL (6.3-8.3)
[2019-08-02 07:28] LABS: CALCIUM 9.5 mg/dL (8.8-10.2)
--- NOTE | 2019-08-02 07:29 | EKG Report ---
Test Performed on : 08/02/2019 06:58:46 AM Test Reason : cp Blood Pressure : / mmHG Vent. Rate : 099 BPM Atrial Rate : 277 BPM P-R Int : 000 ms QRS Dur : 100 ms QT Int : 366 ms P-R-T Axes : 000 059 -01 degrees QTc Int : 469 ms Atrial fibrillation. Abnormal QRS-T angle, consider primary T wave abnormality Abnormal ECG When compared with ECG of 03-JUL-2019 10:33, No significant change was found Confirmed by Manny ROCHA, P.J.M ([id number]) on 08/02/2019 6:32:42 PM
[2019-08-02] MEDS: SPIRIVA INH SCH (08:31)
[2019-08-02] MEDS: CENTRUM SILVER PO SCH (09:04)
[2019-08-02] MEDS: MULTAQ PO SCH ×2 (09:04→21:39)
[2019-08-02] MEDS: CARDIZEM CD PO SCH ×2 (09:04→21:39)
[2019-08-02] MEDS: GLUCOPHAGE PO SCH ×2 (09:04→21:40)
[2019-08-02] MEDS: TOPROL XL PO SCH (09:05)
[2019-08-02] MEDS: LASIX IV SCH (10:53)
[2019-08-02] MEDS: ROCEPHIN 1 GM in NS 50 ML IV SCH (10:53)
--- NOTE | 2019-08-02 11:00 | PROGRESS NOTE ---
DATE: 08/02/2019 SUBJECTIVE: Sixteen hours status post Rhino Rocket placed, right. Has had no further bleeding. Occasionally clears some blood from oropharynx, but this is minimal. PHYSICAL EXAMINATION: Rhino Rocket in place. Low pressure in balloon. No active bleeding. IMPRESSION: Satisfactory course. I have discussed with Ms. Duncan. PLAN: Will plan to remove pack Friday a.m., for hopefully discharge that day. cc: Nathanael Harry MD
--- NOTE | 2019-08-02 14:58 | CARDIOLOGY CONSULTATION ---
DATE: 08/02/2019 REQUESTING PHYSICIAN: Hospitalist Service. REASON FOR CONSULTATION: Atrial fibrillation. Patient on anticoagulant with profuse nose bleeding. HISTORY: Ms. Duncan is a 74-year-old female who is known to me. The patient has been treated for paroxysmal atrial fibrillation. On Friday, the day prior to admission, she developed anterior epistaxis. The next day, she developed posterior epistaxis that was really massive, and she decided to come to the ER. She was seen by ENT, Dr. Harry, and they have already packed the nose properly, and the bleeding has stopped. Because she has been on anticoagulant, dabigatran, this has been discontinued, and they have checked PT and PTT, and both were elevated at 21.2 and 64.3. The patient is feeling better now. She denies having any chest pain, shortness of breath, or palpitations. Her EKG reveals that she is in atrial fibrillation with controlled rate. PAST MEDICAL HISTORY: Positive for a diagnosis of paroxysmal atrial fibrillation. She has also a history of coronary heart disease. The patient has had previous heart catheterization that showed no evidence of obstructive coronary heart disease. She has hypertension, hyperlipidemia, diabetes mellitus type 2, hypothyroidism. PAST SURGICAL HISTORY: Includes carpal tunnel release, tubal ligation, neck surgery, and tonsillectomy. FAMILY HISTORY: Father with a stroke. Mother with a stroke and lung cancer. SOCIAL HISTORY: She is a , retired. She lives by herself. She is a tobacco user. ALLERGIES: Negative. MEDICATIONS: Her home medications at the time of this admission included Pradaxa (dabigatran) 150 mg twice daily, diltiazem CD 120 mg twice daily, Multaq (dronedarone) 400 mg twice a day, furosemide 40 mg daily, levothyroxine 25 mcg daily, meloxicam 7.5 twice a day, metformin 500 mg twice a day, metoprolol-XL 25 daily, montelukast 1 tablet at bedtime, pravastatin 40 mg at bedtime, multivitamins. REVIEW OF SYSTEMS: Other than the nosebleed and the history of atrial fibrillation, really nothing contributory. PHYSICAL EXAMINATION: Vital Signs: Blood pressure 125/65, temperature 97.4 degrees, pulse 87, respirations 18. General: She is awake, alert, oriented, in no distress. HEENT: Evidence of the nose packing. Chest: Diminished breath sounds bilaterally with some dry rales. Heart: Irregularly irregular. No gallop or murmur. Abdomen: Nontender, soft. No masses. No hepatomegaly. Extremities: Decreased pulses. No peripheral edema. Neurological: Follows commands. Moves all 4 extremities. LABORATORY DATA: The patient's blood work showed sodium is 144, potassium is 3.8, BUN 16, creatinine 0.5. Hemoglobin A1c 6.2%. Hemoglobin is 11.9, hematocrit 37.6. IMPRESSION: 1. Patient who has persistent atrial fibrillation. We have just recently performed cardioversion. However, we put her on Multaq, diltiazem, and beta duncan, and unfortunately, she has converted back into atrial fibrillation. 2. Anterior and posterior epistaxis. This has been aggravated by the fact that she has been recently prescribed oxygen, and that has irritated her nasal mucosa, and she has developed significant epistaxis. Dr. Harry has already taken care of her. Will have to stop the anticoagulation. 3. Chronic obstructive pulmonary disease, former smoker. 4. Question of opacity in the right lower lobe, atelectasis versus pneumonia. RECOMMENDATIONS: At this time, we will put on hold the anticoagulation. Dr. Harry is going to take care of the immediate problem, follow her at his office, and we may be able to resume the anticoagulant if we are capable of controlling the irritation of the nasal mucosa. If she keeps on bleeding, then we may have to refer her for implantation of a Watchman device for prevention of stroke. From my perspective, the patient can be discharged home any time on her current medications, and we will arrange for followup with us or with the Electrophysiology Service in [place] to render opinion regarding Watchman device. cc: Pavan Aparicio MD [facility]
--- NOTE | 2019-08-02 15:08 | DISCHARGE SUMMARY ---
ADMISSION DATE: 08/01/2019 DISCHARGE DATE: 08/02/2019 SUBJECTIVE: Patient has no major complaints. OBJECTIVE: Vital Signs: Blood pressure 123/72, heart rate of 108, respiratory rate of 20, temperature 97.7 degrees, satting 97% on 12 L. Cardiovascular: Regular rate and rhythm. Pulmonary: Occasional rhonchi, wheezes. GI: Soft, nontender, nondistended. Bowel sounds are positive. LABORATORY DATA: Her white count is 7, hemoglobin and hematocrit 11 and 37, platelets 154. Basic was normal. PROBLEM LIST: 1. Severe epistaxis related to anticoagulation. We are going to hold her anticoagulation indefinitely. Appreciate Dr. Aparicio's help and Dr. Harry. She has the rhino rocket in place. We will keep it in place for another 2 days, and Dr. Harry is following. 2. She has recent hypoxia, possibly some early pneumonia, congestive heart failure. We will continue to wean oxygen. Repeat x-ray tomorrow. 3. Type 2 diabetes, stable currently. We will continue to monitor closely. 4. Anemia, relatively stable. 5. Hypernatremia has also stabilized. DISPOSITION: Anticipate discharge in the next 1 to 2 days at the discretion of consultants. We will continue to follow. cc: Ernie Mccann MD
[2019-08-02] MEDS: SINGULAIR PO SCH (21:40)
[2019-08-02] MEDS: PRAVACHOL PO SCH (21:40)
[2019-08-03] MEDS: HUMULIN R SUBQ SCH ×4 (06:09→21:50)
[2019-08-03] MEDS: SYNTHROID PO SCH (06:36)
[2019-08-03 07:14] LABS: BASO# 0.02 X1000 (0.0-0.2); BASO% 0.3 % (0.0-0.8); EOS% 2.9 % (0.0-10.0); HEMOGLOBIN 11.3 g/dL (12.0-16.0); IMM GRAN# 0.02 X1000 (0.0-0.04); IMM GRAN% 0.3 % (0.0-0.5); LYMPH# 1.43 X1000 (1.2-3.4); LYMPH% 20.5 % (20.5-51.1); MCH 32.7 PG (27-31); MCHC 31.4 g/dL (33-37); MONO# 0.77 X1000 (0.11-0.59); MONO% 11.1 % (1.7-9.3); MPV 11.7 FL (7.4-10.4); NEUT# 4.52 X1000 (1.4-6.5); NEUT% 64.9 % (42.2-75.2); PLT 143 X1000 (130-400); RBC 3.46 XMIL (4.2-5.4); RDW 12.5 % (11.5-14.5); WBC 6.96 X1000 (4.8-10.8)
--- NOTE | 2019-08-03 07:23 | EKG Report ---
Test Performed on : 08/03/2019 06:38:02 AM Test Reason : afib Blood Pressure : / mmHG Vent. Rate : 088 BPM Atrial Rate : 258 BPM P-R Int : 000 ms QRS Dur : 090 ms QT Int : 400 ms P-R-T Axes : 000 062 018 degrees QTc Int : 484 ms Atrial fibrillation. Abnormal ECG When compared with ECG of 02-AUG-2019 06:58, No significant change was found Confirmed by Manny ROCHA, P.J.M ([id number]) on 08/04/2019 3:07:57 PM
[2019-08-03] MEDS: SPIRIVA INH SCH (07:47)
[2019-08-03] MEDS: GLUCOPHAGE PO SCH ×2 (08:13→21:49)
[2019-08-03] MEDS: TOPROL XL PO SCH (08:13)
[2019-08-03] MEDS: CARDIZEM CD PO SCH ×2 (08:13→21:49)
[2019-08-03] MEDS: CENTRUM SILVER PO SCH (08:13)
[2019-08-03] MEDS: LASIX IV SCH (08:13)
[2019-08-03] MEDS: MULTAQ PO SCH ×2 (08:13→21:49)
--- NOTE | 2019-08-03 09:34 | Diag Imaging Result Doc PS360 ---
CHEST-2 VIEWS - 08/03/2019 INDICATION: hypoxia COMPARISON: 08/02/2019 FINDINGS: Stable cardiomegaly and diffuse pulmonary vascular congestion. Stable trace right pleural effusion. Stable patchy infiltrates in the right lung base. No new infiltrates. IMPRESSION: No change from prior. Electronically signed by Leon Can 08/03/2019 9:31 AM
[2019-08-03] MEDS: ROCEPHIN 1 GM in NS 50 ML IV SCH (09:52)
--- NOTE | 2019-08-03 09:54 | PROGRESS NOTE ---
DATE: 08/03/2019 SUBJECTIVE: Approximately 36 hours status post placement of Rhino Rocket, right. She has had no further bleeding. No posterior clearance of blood. No anterior seepage of blood. She is off anticoagulation. No complaints. OBJECTIVE: Pack in place. Low pressure in balloon. No active bleeding. ASSESSMENT: Satisfactory course. PLAN: We will remove pack in a.m. Hopefully will be able to be discharged tomorrow morning. cc: Nathanael Harry MD
[2019-08-03] MEDS: SINGULAIR PO SCH (21:49)
[2019-08-03] MEDS: PRAVACHOL PO SCH (21:49)
[2019-08-04 06:34] LABS: BASO# 0.03 X1000 (0.0-0.2); BASO% 0.5 % (0.0-0.8); EOS% 3.1 % (0.0-10.0); HEMOGLOBIN 11.1 g/dL (12.0-16.0); LYMPH# 1.22 X1000 (1.2-3.4); LYMPH% 18.7 % (20.5-51.1); MCH 32.9 PG (27-31); MCHC 31.7 g/dL (33-37); MCV 103.9 FL (81-99); MONO# 0.89 X1000 (0.11-0.59); MONO% 13.6 % (1.7-9.3); MPV 11.7 FL (7.4-10.4); NEUT% 64.1 % (42.2-75.2); PLT 143 X1000 (130-400); RBC 3.37 XMIL (4.2-5.4); RDW 12.6 % (11.5-14.5); WBC 6.54 X1000 (4.8-10.8)
[2019-08-04] MEDS: HUMULIN R SUBQ SCH (06:42)
[2019-08-04] MEDS: SYNTHROID PO SCH (06:43)
--- NOTE | 2019-08-04 07:50 | EKG Report ---
Test Performed on : 08/04/2019 06:23:29 AM Test Reason : afib Blood Pressure : / mmHG Vent. Rate : 087 BPM Atrial Rate : 357 BPM P-R Int : 000 ms QRS Dur : 094 ms QT Int : 394 ms P-R-T Axes : 000 060 017 degrees QTc Int : 474 ms Atrial fibrillation. Abnormal ECG When compared with ECG of 03-AUG-2019 06:38, (Unconfirmed) No significant change was found Confirmed by Manny ROCHA, P.J.M ([id number]) on 08/04/2019 3:11:27 PM
[2019-08-04] MEDS: SPIRIVA INH SCH (08:04)
[2019-08-04 08:07] VITALS: BP 117/61
[2019-08-04] MEDS: CARDIZEM CD PO SCH (08:08)
[2019-08-04] MEDS: LASIX IV SCH (08:08)
[2019-08-04] MEDS: CENTRUM SILVER PO SCH (08:08)
[2019-08-04] MEDS: TOPROL XL PO SCH (08:08)
[2019-08-04] MEDS: MULTAQ PO SCH (08:08)
[2019-08-04] MEDS: GLUCOPHAGE PO SCH (08:08)
--- NOTE | 2019-08-04 08:47 | PROGRESS NOTE ---
DATE: 08/04/2019 The patient has had no bleeding, no anterior epistaxis, has not been noticing any blood in oropharynx. No complaints. OBJECTIVE: Rhino Rocket removed without difficulty. Anterior nose was clear. Oropharynx clear, no blood. IMPRESSION: Satisfactory course. PLAN: From epistaxis standpoint, patient will be discharged. She will follow with me Friday in the office. She knows to call me before with any problems with her nose. cc: Nathanael Harry MD
--- NOTE | 2019-08-04 10:49 | PROGRESS NOTE ---
DATE: 08/04/2019 SUBJECTIVE: Patient has no major complaints. Still somewhat short of breath. OBJECTIVE: Blood pressure 115/65, heart rate 78, respiratory rate 24, temp was 98.1. Cardiovascular: Regular rate and rhythm. Pulmonary bilateral breath sounds. Clear to auscultation. GI: Was soft, nontender, nondistended. Bowel sounds are positive. Pulmonary: Clear to auscultation. LABORATORY: White count 6, Hemoglobin and hematocrit 11 and 36 platelets 143,000. A1c was 20; however, severe sepsis has overall improved. ASSESSMENT: 1. Hypoxic respiratory failure that is also improved. 2. Epistaxis. There is no evidence of gross bleeding. We will watch her over the next 24 hours, potentially discharge home. cc: Ernie Mccann MD
--- NOTE | 2019-08-04 12:02 | DISCHARGE SUMMARY ---
ADMISSION DATE: 08/01/2019 DISCHARGE DATE: 08/04/2019 DIAGNOSES: 1. Epistaxis, resolved. 2. Hypoxic respiratory failure, improved. 3. Diabetes mellitus type 2. 4. Anemia. 5. Persistent atrial fibrillation. 6. Chronic obstructive pulmonary disease. 7. Right lower lobe pneumonia. CONSULTS: 1. Dr. Harry, ENT. 2. Dr. Aparicio, cardiology. DIAGNOSTICS: 1. Chest x-ray on 08/02/2019 revealed atelectasis versus pneumonia in the right lower lobe. 2. On 08/03/2019, chest x-ray, no change from prior. HOSPITAL COURSE: Ms. Duncan presented to the emergency room with perfuse bleeding from her nose. She is on Pradaxa due to atrial fibrillation. Dr. Harry was consulted. He placed a Rhino Rocket with Jenaro-Synephrine. Bleeding was controlled. Packing was removed on the , approximately 36 hours after placement. She had no further bleeding. She was found to have right lower lobe pneumonia. Her initial chest x-ray showed right lower lobe atelectasis versus pneumonia. A followup chest x-ray on the revealed stable patchy infiltrates in the right lung base with no new infiltrates. She was given Rocephin for IV antibiotic coverage. She remained afebrile with no elevated white count. She was initially hypoxemic, having saturations of 90. She received oxygen via Ventimask and saturations stayed in the 95 to 97 range. She does have home O2, which she will continue on discharge as previously ordered. Cardiology was consulted regarding her having persistent atrial fibrillation, status post a recent cardioversion, being on Multaq, diltiazem, and beta blockers. Dr. Aparicio will have his office arrange an appointment with EP service in [place] to render an opinion regarding a Watchman device. DISCHARGE VITAL SIGNS: Blood pressure is 117/61, with a heart rate of 100, respirations are 18, temperature 97.7 degrees oral, with O2 saturations ranging 92 to 95 percent on a Venturi mask. PHYSICAL EXAMINATION: Cardiovascular: Irregularly irregular rate and rhythm. S1 and S2 are appreciated. She has no lower extremity edema. Calves are nontender bilaterally, with peripheral pulses palpable x4 extremities. Pulmonary: Breath sounds are clear with no increased work of breathing noted. Chest rises and falls symmetrically with respirations. Chest wall is nontender to palpation. Gastrointestinal: Abdomen is soft, nontender, nondistended, with bowel sounds in all 4 quadrants. HEENT: She has no nasal bleeding. Neurologic: She is alert and oriented x3. DISCHARGE MEDICATIONS: 1. Spiriva 1 puff daily. 2. Pravachol 40 mg p.o. at bedtime. 3. Vitamin D3 two p.o. daily. 4. Toprol-XL 25 mg p.o. daily. 5. Metformin 500 mg p.o. b.i.d. 6. Meloxicam 7.5 p.o. b.i.d. 7. Levothyroxine 25 mcg p.o. daily. 8. Furosemide 40 mg p.o. daily. 9. Multaq 400 mg p.o. b.i.d. 10. Cardizem CD 120 mg p.o. b.i.d. 11. Pradaxa 150 mg p.o. b.i.d. 12. Omnicef 300mg po b.i.d x [address]: 1[address]. Harry on August 10 at 2:30 p.m. [address] Aparicio's office will set up an appointment with the curtain worker in [place]. They will call the patient once scheduled. 3. She has been instructed to call to be seen sooner or return to the emergency room for any syncope, dizziness, chest pain, any shortness of breath, cough, temperature greater than 101, chills, night sweats, any recurring nasal bleeding, any hemoptysis, any nausea, vomiting, diarrhea, constipation, black or bloody vomitus or stools, any hematuria, dysuria, frequency, or urgency. She is being discharged home in stable condition with family members. TIME SPENT: This is a greater than 30 minute discharge. Dictated by LEROY Carey for Steve Hammer MD Addendum: Patient seen and examined by myself. Agree with LEROY note. It reflects my assessment and plan. Patient is being discharged in stable condition. Follow up with his PCP in a week. cc: LEROY Carey MD [facility]
== END 2019-08-04 11:13 | disposition home or self-care (01) | DRG 150 ==
LOC: ED 15:17 → 2N 21:24 → SUATTDRO 21:24
PROVIDERS: ATTEND Internal Medicine